=== PATIENT | female | born 1995 | race Caucasian/White ===

== ENCOUNTER 2025-01-06 22:40 | Inpatient (IN) | payer MEDICAID ==
[2025-01-07] MEDS ORDERED: Nalbuphine 10 MG/1 ML Vial IVPUSH PRN (01:12)
[2025-01-07 01:27] LABS: BASOPHILS ABSOLUTE AUTO 0.1 K/mm3 (0.0-0.2); BASOPHILS PERCENT AUTO 0.4 % (0.0-1.0); EOSINOPHILS ABSOLUTE AUTO 0.1 K/mm3 (0.0-0.4); EOSINOPHILS PERCENT AUTO 0.3 % (0.0-6.0); IMMATURE GRAN ABSOLUTE AUTO 0.10 K/mm3 (0.00-0.05); IMMATURE GRAN PERCENT AUTO 0.7 % (0.0-0.4); LYMPHOCYTES ABSOLUTE AUTO 3.5 K/mm3 (1.0-4.8); LYMPHOCYTES PERCENT AUTO 23.7 % (24.0-44.0); MEAN PLATELET VOLUME 11.5 fl (9.4-12.3); MONOCYTES ABSOLUTE AUTO 1.0 K/mm3 (0.0-0.8); MONOCYTES PERCENT AUTO 6.7 % (0.0-8.0); NEUTROPHILS ABSOLUTE AUTO 10.2 K/mm3 (1.8-7.7); NEUTROPHILS PERCENT AUTO 68.2 % (41.0-71.0); NRBC ABSOLUTE 0.00 (0.00-0.02); NRBC PERCENT 0.0 % (0.0-0.2); PLATELET COUNT,PLT 294 K/mm3 (150-400); RED BLOOD CELL COUNT 3.99 M/mm3 (4.10-5.30); WHITE BLOOD CELL COUNT,WBC 14.90 K/mm3 (3.9-11.3)
[2025-01-07] MEDS: Lactated Ringers 1,000 ML IV SCH (01:39)
[2025-01-07] MEDS ORDERED: fentaNYL 100 MCG/2 ML SDV EPIDUR PRN (01:44)
[2025-01-07] MEDS ORDERED: diphenhydrAMINE 50 MG/ML SDV IVPUSH PRN (01:44)
[2025-01-07] MEDS ORDERED: ePHEDrine 50 MG/ML SDV IVPUSH PRN (01:44)
[2025-01-07] MEDS: Ondansetron 4 MG/2 ML SDV IVPUSH PRN (05:22)
[2025-01-07] MEDS: Sodium Chloride 0.9% 10 ML Syringe FLUSH SCH (09:19)
[2025-01-07] MEDS: Bupivacaine/fentaNYL/NS 100 ML Bag EPIDUR PRN (09:54)
[2025-01-07] MEDS: Oxytocin/0.9 % Sodium Chloride 30 UNIT/500 ML BAG IV SCH (11:00)
[2025-01-07] MEDS ORDERED: Oxytocin/0.9 % Sodium Chloride 30 UNIT/500 ML BAG IV SCH (11:52)
[2025-01-07] MEDS ORDERED: Magnesium Hydroxide 400 MG/5 ML Susp 30 ML Cup PO PRN (11:52)
[2025-01-07] MEDS ORDERED: Benzocaine/Menthol 20%-0.5% Spray 78 GM Cannister TOP PRN (11:52)
[2025-01-07] MEDS ORDERED: Witch Hazel Medicated Pads 40/Jar TOP PRN (11:52)
[2025-01-07 21:46] LABS: GROUP B STREP BY PCR NEGATIVE (NEGATIVE)
[2025-01-08] MEDS: Prenatal Multivitamin with Calcium/Folic Acid/Iron Tab PO SCH (10:23)
== END 2025-01-08 14:13 | disposition home or self-care (01) | DRG 807 ==
LOC: JD.OBCHECK 22:40 → JD.OB 22:45 → JD.OBCHECK 01-07 01:44 → OBSVTOIN 01-07 11:32 → JD.OB 01-07 11:33
PROVIDERS: ADMIT Obstetrics & Gynecology; ATTEND Obstetrics & Gynecology
PROC: 10E0XZZ Delivery of Products of Conception, External Approach (ICD-10-PCS; principal; 2025-01-07)
PROC: 10907ZC Drainage of Amniotic Fluid, Therapeutic from Products of Conception, Via Natural or Artificial Opening (ICD-10-PCS; 2025-01-07)
PROC: 0HQ9XZZ Repair Perineum Skin, External Approach (ICD-10-PCS; 2025-01-07)
PROC: 3E033VJ Introduction of Other Hormone into Peripheral Vein, Percutaneous Approach (ICD-10-PCS; 2025-01-07)
PROC: 3E0R3BZ Introduction of Anesthetic Agent into Spinal Canal, Percutaneous Approach (ICD-10-PCS; 2025-01-07)
PROC: 00HU33Z Insertion of Infusion Device into Spinal Canal, Percutaneous Approach (ICD-10-PCS; 2025-01-07)
DX: O99.214 Obesity complicating childbirth (principal); Z37.0 Single live birth; O75.89 Other specified complications of labor and delivery; O99.344 Other mental disorders complicating childbirth; F32.A Depression, unspecified; F43.10 Post-traumatic stress disorder, unspecified; F60.3 Borderline personality disorder; O70.0 First degree perineal laceration during delivery; Z91.018 Allergy to other foods; Z86.32 Personal history of gestational diabetes; Z3A.37 37 weeks gestation of pregnancy
CPT/HCPCS: 36415; 51702; 59025; 59409; 84112; 85025; 86592; 86850; 86900; 86901; 87653; A9270-GY; J0290; J2405; J3490; J7120; J7999